=== PATIENT | male | born 1975 | race Caucasian/White ===

== ENCOUNTER 2018-06-20 10:58 | Outpatient (CLI) | payer OTHER ==
[2018-06-20 12:28] LABS: COLOR,URINE YELLOW (YELLOW)
[2018-06-20 12:29] LABS: APPEARANCE,URINE CLEAR (CLEAR); OCCULT BLOOD,URINE TRACE-INTACT (NEGATIVE); PH URINE 6.5 (5.0 - 8.0); UROBILINOGEN URINE 0.2 Eu (0.2-1.0)
[2018-06-20 18:22] LABS: TOTAL PROTEIN 7.8 g/dL (6.0-8.5)
[2018-06-20 18:51] LABS: BASO % 0.2 % (0.0-1.5); EOS % 0.4 % (0.0-6.8); MCH. 28.5 pg (28.0-34.0); MCV 86.7 fL (80.0-100.0); MONOCYTE % 4.9 % (0.0-11.0); MONOCYTE ABS # 0.62 thou/uL (0.00-0.90); PLATELET COUNT 349 thou/uL (130-400)
--- NOTE | 2018-06-20 19:29 | Diagnostic Imaging Report ---
KATHE OLVERA [facility] [address] [facility] [address] [place] [address]. [id number] Report Submission Date: Jun 20, 2018 12:18:31 PM CDT Patient Study Name: FREDERICK JANG Date: Jun 20, 2018 11:35:37 AM CDT Modality Type: CT Gender: M Description: CT ABD PELVIS W/ CON : 79 Institution: [facility] Physician: KATHE OLVERA Examination: CT Abdomen/pelvis History: CT A/P WITH CONTRAST, LOWER ABDOMINAL PAIN X2-3 WEEKS, WORSE IN THE LAST 3-4 DAYS, NO ABDOMINAL SURGERIES (Hx) Comparison exams: None available Technique: CT Abdomen/pelvis with IV protocol. Findings: Liver, spleen, adrenals, pancreas, kidneys and gallbladder are without gross irregularity. No gallstone. Peripherally calcified splenic cyst. No suspicious renal calcifications. Ureters are nondilated in their course through the abdomen and pelvis. No central calcifications. Bladder margin within normal limits. Abdominal aorta without aneurysm or peripheral atherosclerotic disease. Cardiac silhouette is not enlarged. No pericardial effusion. No abnormal small bowel dilation. Stool within the large bowel limiting sensitivity. Sigmoid diverticula. Mucosal thickening and adjacent mesenteric and stranding. No free fluid. Appendix is visualized and is without inflammatory changes. Osseous structures demonstrate degenerative changes. Lung bases without infiltrate. No effusion. Impression: Sigmoid diverticulitis. No evidence for perforation or abscess at this time. No acute upper abdominal organ inflammatory process. No gallstone. No suspicious renal calcifications or abnormal ureteric dilation. No lung base consolidation or effusion. Electronically signed on Jun 20, 2018 12:18:31 PM CDT by: Jagjit WILSON
== END 2018-06-20 11:00 ==
LOC: LAB 10:58
PROVIDERS: ATTEND Physician Assistant
DX: R10.30 Lower abdominal pain, unspecified (principal)
CPT/HCPCS: 36415; 74177; 80053; 81002; 85025; Q9967

== ENCOUNTER 2019-06-12 10:37 | Outpatient (CLI) | payer OTHER | END 2019-06-12 10:40 | LOC: LAB 10:37 | PROVIDERS: ATTEND Family Medicine | DX: E03.9 Hypothyroidism, unspecified (principal) | CPT/HCPCS: 36415; 84443 ==

== ENCOUNTER 2019-08-22 15:38 | Outpatient (CLI) | payer OTHER | END 2019-08-22 15:43 | LOC: LAB 15:38 | PROVIDERS: ATTEND Family Medicine | DX: E03.9 Hypothyroidism, unspecified (principal) | CPT/HCPCS: 36415; 84443 ==